=== PATIENT | male | born 1990 | race Caucasian/White ===

== ENCOUNTER → 2016-11-07 | Outpatient (CLI) | payer OTHER ==
--- NOTE | 2016-11-07 12:53 | DIAGNOSTIC IMAGING REPORT ---
TESTICULAR ULTRASOUND CLINICAL HISTORY: Testicular pain COMPARISON STUDY: No previous studies for comparison. FINDINGS: The right testis measures 43 x 35 x 24 mm. The left testis measures 41 x 33 x 21 mm. No intratesticular masses are visualized. There is no evidence of testicular torsion. No epididymal lesions are evident. IMPRESSION: Normal study. No evidence of intratesticular mass. No evidence of testicular torsion. Electronically signed by: Jose Celestin M.D. 11/07/2016 12:51 PM Dictated Date/Time: 11/07/2016 12:51 PM
== END | disposition home or self-care (01) ==
LOC: C.ULTR 11:50
PROVIDERS: ATTEND Urology
DX: N50.819 Testicular pain, unspecified (principal)